=== PATIENT | male | born 1940 | race Caucasian/White ===

== ENCOUNTER 2016-08-18 01:20 | Day surgery (SDC) | payer MEDICARE ==
[2016-08-18] VITALS (29 sets, daily range): BP systolic 110–144; BP diastolic 54–76; PULSE 69–76; RESP 12–22; O2SAT 91–100
[~2016-08-18] VITALS: Ht 175.3 cm; Wt 88.9 kg
[~2016-08-18 01:20] MED LIST: ALBU8.5H2 INHALATION; ASPI325T32 PO; ATOR80TA77 PO; CHOL10008 PO; CYAN50TA2 PO; DIGO250T72 PO; FURO-129 PO; GLUC1500 PO; GREE1CAP PO; LISI40TA PO; LORA10CA PO; METF1000 PO; MULT1CAP33 PO; NITR0.4T SL; PHEN1PAC PO; RANI150C4 PO; TERB12GE TP
[2016-08-18] MEDS ORDERED: Heparin 1,000 Units/500 mL NS Premix IV ONE (08:01)
[2016-08-18] MEDS ORDERED: Heparin 5,000 Units/500 mL NS Premix IV ONE (08:01)
[2016-08-18 08:06] LABS: BASOPHILS % (AUTO) 0.5 % (0-3); EOSINOPHILS % (AUTO) 6.7 % (0-5); MONOCYTES % (AUTO) 7.2 % (4-12); Mean Corpuscular Hemoglobin 32.5 pg (27.0-35.0); Mean Corpuscular Volume 95.1 fL (81-100); NEUTROPHILS % (AUTO) 45.6 % (40-74); Platelet Count 80 bil/L (150-400)
[2016-08-18] MEDS ORDERED: CARV12.52 PO (08:24)
--- NOTE | 2016-08-18 08:59 | NUR ---
Admitted for a heart cath today for by Dr Stanley for > SOB with chest pressure. Pt is a hard worker and states he is having this pain when lifting "75 pounds up stairs". Pt has had a CABG and has known Low EF with recent echo. Bi-V - ICD placed in 2013 for an EF of 35%. Pacer 100% capture on admit to [facility] no active chest pain.
--- NOTE | 2016-08-18 11:36 | DI95 ---
[address] [address] INTERVENTIONAL CARDIAC CATHETERIZATION PATIENT: INDER MOSLEY : 1940 MR#: [id number] ADMIT: 08/18/2016 JOB ID: [id number] DATE OF SERVICE: 08/18/2016 PROCEDURE: 1. Selective right and left coronary angiography. 2. Percutaneous intervention on the saphenous vein graft to circumflex. 3. Saphenous vein angiography. 4. WHITFIELD angiography. 5. Left heart catheterization. INDICATION: Abnormal stress test. Recurrent chest pain. LV dysfunction. PROCEDURAL DETAILS: The reader is referred to the procedure log for complete details, and the coders are referred to it as well. ANGIOGRAPHIC FINDINGS: 1. Calcification of the coronaries is noted on fluoroscopy. 2. Left main short, distally it tapers and has about a 70% lesion at the takeoff of the LAD. The LAD is totally occluded proximally, as is the circumflex. 3. Right coronary artery is totally occluded proximally. 4. Saphenous vein angiography: Saphenous vein to circumflex has a 70-80% lesion in its proximal segment. 5. WHITFIELD to LAD is patent. Saphenous vein graft to RCA is totally occluded. Saphenous vein graft to ramus intermedius is occluded. The saphenous vein graft to OM was not previously well visualized and was reported as occluded. It is, however, patent. 6. Left heart catheterization revealed an LVEDP of 20-23. There was no gradient upon pullback. LV-gram showed dilated LV with mid to basal inferior akinesis. Global hypokinesis was noted. Ejection fraction is about 25-30%. INTERVENTIONAL REPORT: We then proceeded ahead with an intervention on the saphenous vein graft. A filter wire was placed in the distal graft. The lesion was pre-dilated with a 3.0 balloon and then stented with a 4 x 18 mm Xience drug-coated stent delivered at 14 atmospheres, with excellent angiographic results and no distal embolization. The patient is advised to stay on dual antiplatelet therapy for six months post procedure.
--- NOTE | 2016-08-18 12:06 | NUR ---
Returned from [facility] at a 1115 with a single drug eluding stent. Right femoral sheath in place until 1300. Plan for 2 hour recovery post sheath removal.
--- NOTE | 2016-08-18 14:07 | NUR ---
Right femoral sheath removed at 1315. 2 hour recovery - planned - with transfer to floor for overnight observation. No pain. 100% paced.
--- NOTE | 2016-08-18 15:53 | NUR ---
Transfer report given to Steven Arora RN for room 2005. No changes with right groin hematoma - site is soft and non-tender. Pt and , " Tiffany" updated on plan of care. Plan on Bed rest until 1800 post - 3 hours post hematoma. Remains 100% paced.
[2016-08-18] MEDS ORDERED: Albuterol 2.5 mg/3 mL Inhalation Solution NEB PRN (17:25)
[2016-08-18] MEDS ORDERED: TerBINafine 1% 15 Gm Cream TOPICAL SCH (17:30)
--- NOTE | 2016-08-18 18:41 | NUR ---
Admit to [facility] Pt arrived on [facility] at 1645 report received from ALTA Sepulveda. Bed rest Vitals stable, groin site non-tender, slightly more firm than opposite side, but no lumps or hematoma. Rechecked following pt getting out of bed when off bedrest, no changes. Cardiac: Pt denies CP, Tele: Vpaced 70s. Resp: Pt denies SOB, SPO2 mid 90s on RA. GI/: Pt denies n/v/d Neuro: Pt on bedrest till 18:00. A&Ox3, VENESSA.
[2016-08-19] MEDS ORDERED: 0.9% Sodium Chloride 1,000 ML IV PRN (01:56)
[2016-08-19] MEDS ORDERED: 0.9% Sodium Chloride 250 ML IV PRN (01:56)
[2016-08-19] MEDS ORDERED: Ondansetron 2 mg/mL 2 mL Inj IVPUSH PRN (02:00)
[2016-08-19] MEDS: Insulin Human REGular 300 Unit/3 mL Inj - Low SUBQ SCH ×2 (02:30→08:30)
--- NOTE | 2016-08-19 03:29 | NUR ---
Cardiac: Telemetry V-Paced. Denies chest pain. Right groin site unremarkable, soft to palpation. Minimal amount of old sanguineous drainage under bio-occlusive dressing, no active bleeding during shift. No overt signs or symptoms of distress. Pt. refused all medications during shift, pt. educated regarding importance and use for each medication, pt. continues to refuse all medications.
[2016-08-19 04:34] VITALS: BP 138/72; PULSE 70; RESP 20; O2SAT 97
[2016-08-19] MEDS ORDERED: Lisinopril 40 Tablet PO SCH (08:30)
[2016-08-19 08:44] VITALS: BP 136/79; PULSE 71; RESP 20; O2SAT 98
[2016-08-19 11:02] VITALS: PULSE 74
[2016-08-19] MEDS ORDERED: CLOP75TA3 PO (12:51)
--- NOTE | 2016-08-19 13:39 | PROG NOTE ---
[address] [address] PROGRESS NOTE PATIENT: INDER MOSLEY : 1940 MR#: [id number] ADMIT: 08/18/2016 JOB ID: [id number] DATE:08/19/16 SUBJECTIVE: This gentleman is status post intervention on a saphenous vein graft to circumflex. OBJECTIVE: On examination, vitals stable. His creatinine is 0.71. Preprocedure, it was 0.82. ASSESSMENT AND PLAN: He may resume his metformin. He has been given a prescription for Plavix. His groin site looks good. He is advised to follow up with Dr. Nunez in two weeks' time. MONA
--- NOTE | 2016-08-19 15:31 | NUR ---
Refused all Medication Pt refusing all medications. He states that he does not wish to pay for them and as he is being discharged today he will take his medications when he gets home.
--- NOTE | 2016-08-19 15:33 | NUR ---
Discharge/Medications Pt discharged to home with transportation by his . Pt's IV was dc'd intact, telemetry removed and tech notified. Per Dr Stinson's request, pt consented to take his Plavix before discharge. Pt's discharge instructions, new medications and follow up appointments were reviewed. All questions were answered and pt voiced understanding. Pt's belongings were gathered for transport with pt. Pt was escorted off unit by RN.
== END 2016-08-19 13:30 | disposition home or self-care (01) ==
LOC: SOUO 01:20 → PCC 16:45 → SOUO 08-19 13:30
PROVIDERS: ATTEND Internal Medicine Cardiovascular Disease
DX: I25.810 Atherosclerosis of coronary artery bypass graft(s) without angina pectoris (principal); I25.10 Atherosclerotic heart disease of native coronary artery without angina pectoris; I25.82 Chronic total occlusion of coronary artery; I10 Essential (primary) hypertension; I25.5 Ischemic cardiomyopathy; I25.2 Old myocardial infarction; E11.9 Type 2 diabetes mellitus without complications; E78.5 Hyperlipidemia, unspecified; Z82.49 Family history of ischemic heart disease and other diseases of the circulatory system; Z95.810 Presence of automatic (implantable) cardiac defibrillator; Z79.82 Long term (current) use of aspirin; Z79.84 Long term (current) use of oral hypoglycemic drugs
CPT/HCPCS: 36415; 80048; 85025; 85610; 93005; 93459; 94799; 99152; 99153; C1725; C1769; C1874; C1884; C1894; C9604; J1644; J1815; Q9967